=== PATIENT | female | born 1960 | race Two or more races ===

== ENCOUNTER 2019-08-26 15:21 | Inpatient (IN) | payer OTHER ==
[~2019-08-26] VITALS: Ht 152.4 cm; Wt 61.7 kg
[2019-09-18] MEDS ORDERED: SYNTHROID100 MCG PO (14:16)
[2019-09-29] MEDS ORDERED: INTESTINEX680 M1 PO (11:11)
[2019-09-29] MEDS ORDERED: OMEPRAZOLE20 MG PO (11:11)
[2019-09-29] MEDS ORDERED: FLAGYL500MG PO (11:11)
[2019-09-29] MEDS ORDERED: NEURONTIN300 MG PO (11:11)
[2019-09-29] MEDS ORDERED: CIPRO500 MG PO (11:11)
[2019-09-29] MEDS ORDERED: ACETAMINOPHEN500 M2 PO (11:11)
== END 2019-09-29 13:15 | disposition home or self-care (01) | DRG 330 ==
LOC: O/R 09-24 05:57 → SURG 09-24 05:57
PROVIDERS: ADMIT Surgery
PROC: 0DJD8ZZ Inspection of Lower Intestinal Tract, Via Natural or Artificial Opening Endoscopic (ICD-10-PCS; 2019-09-24)
PROC: 4A033R1 Measurement of Arterial Saturation, Peripheral, Percutaneous Approach (ICD-10-PCS; 2019-09-24)
PROC: 4A12X4Z Monitoring of Cardiac Electrical Activity, External Approach (ICD-10-PCS; 2019-09-24)
PROC: 0DTN4ZZ Resection of Sigmoid Colon, Percutaneous Endoscopic Approach (ICD-10-PCS; principal; 2019-09-24 07:00)
PROC: BT43ZZZ Ultrasonography of Bilateral Kidneys (ICD-10-PCS; 2019-09-26)
PROC: BW21ZZZ Computerized Tomography (CT Scan) of Abdomen and Pelvis (ICD-10-PCS; 2019-09-26)
PROC: 3E0F7GC Introduction of Other Therapeutic Substance into Respiratory Tract, Via Natural or Artificial Opening (ICD-10-PCS; 2019-09-28)
DX: K57.20 Diverticulitis of large intestine with perforation and abscess without bleeding (principal); N82.3 Fistula of vagina to large intestine; N99.72 Accidental puncture and laceration of a genitourinary system organ or structure during other procedure; S37.29XA Other injury of bladder, initial encounter; G47.33 Obstructive sleep apnea (adult) (pediatric); F17.290 Nicotine dependence, other tobacco product, uncomplicated; E03.8 Other specified hypothyroidism; R73.01 Impaired fasting glucose; Y93.89 Activity, other specified; Y92.234 Operating room of hospital as the place of occurrence of the external cause; Y99.8 Other external cause status

== ENCOUNTER 2019-10-01 02:47 | Emergency (ER) | payer OTHER ==
[~2019-10-01] VITALS: Ht 152.4 cm; Wt 61.2 kg
[~2019-10-01 02:47] MED LIST: ACETAMINOPHEN500 M2 PO; CIPRO500 MG PO; FLAGYL500MG PO; INTESTINEX680 M1 PO; NEURONTIN300 MG PO; OMEPRAZOLE20 MG PO; SYNTHROID100 MCG PO
== END 2019-10-01 04:55 | disposition home or self-care (01) ==
LOC: ER 02:47
DX: R33.8 Other retention of urine (principal)

== ENCOUNTER → 2019-10-07 | Outpatient (CLI) | payer OTHER | END | disposition home or self-care (01) | LOC: TOM 07:15 | DX: N32.1 Vesicointestinal fistula (principal); K57.20 Diverticulitis of large intestine with perforation and abscess without bleeding ==

== ENCOUNTER → 2020-06-01 06:00 | Outpatient (CLI) | payer OTHER | END | disposition home or self-care (01) | LOC: LAB 06:00 → ADM 13:30 → AMB-ENDOS 06-08 13:30 → EDSTATUS 06-08 13:30 | PROVIDERS: ATTEND Surgery | DX: U07.1 COVID-19 (principal); K57.20 Diverticulitis of large intestine with perforation and abscess without bleeding; R10.32 Left lower quadrant pain; N32.1 Vesicointestinal fistula ==

== ENCOUNTER 2020-07-13 05:50 | Day surgery (SDC) | payer OTHER | END 2020-07-13 09:45 | disposition home or self-care (01) | LOC: AMB-ENDOS 05:50 | PROVIDERS: ATTEND Surgery | DX: Z12.11 Encounter for screening for malignant neoplasm of colon (principal); K57.30 Diverticulosis of large intestine without perforation or abscess without bleeding ==

== ENCOUNTER 2020-08-05 11:00 | Inpatient (IN) | payer OTHER ==
[~2020-08-05] VITALS: Ht 152.4 cm; Wt 64.4 kg
[2020-08-13] MEDS ORDERED: OMEGA-3 ACID ETH1 GM (08:05)
[2020-08-13] MEDS ORDERED: SYNTHROID50 MCG (08:05)
== END 2020-08-14 10:21 | disposition home or self-care (01) | DRG 743 ==
LOC: O/R 08-13 06:30 → SURH 08-13 11:00 → OB/GYN 08-13 17:45
PROVIDERS: ADMIT Obstetrics & Gynecology Gynecologic Oncology; ATTEND Obstetrics & Gynecology Gynecologic Oncology
PROC: 0UT64ZZ Resection of Left Fallopian Tube, Percutaneous Endoscopic Approach (ICD-10-PCS; 2020-08-13)
PROC: 0DBU4ZZ Excision of Omentum, Percutaneous Endoscopic Approach (ICD-10-PCS; 2020-08-13)
PROC: 07BC4ZX Excision of Pelvis Lymphatic, Percutaneous Endoscopic Approach, Diagnostic (ICD-10-PCS; 2020-08-13)
PROC: 0UT14ZZ Resection of Left Ovary, Percutaneous Endoscopic Approach (ICD-10-PCS; principal; 2020-08-13 14:30)
DX: D27.1 Benign neoplasm of left ovary (principal); E03.9 Hypothyroidism, unspecified; G47.33 Obstructive sleep apnea (adult) (pediatric); Z87.891 Personal history of nicotine dependence